=== PATIENT | male | born 1960 | race Caucasian/White ===

== ENCOUNTER 2023-07-16 17:30 | Inpatient (IN) | payer OTHER ==
[~2023-07-16] VITALS: Ht 188 cm; Wt 84.4 kg
[2023-07-16 23:39] VITALS: BP 115/80
[2023-07-17] VITALS (18 sets, daily range): BP systolic 120–165; BP diastolic 77–107
[2023-07-17] MEDS ORDERED: XARELTO20 M1 PO (00:01)
[2023-07-17] MEDS ORDERED: Ventolin/Prove6.7 GM INH (00:02)
[2023-07-17] MEDS ORDERED: BUDESONIDE-FO10.2 G2 INH (00:03)
[2023-07-17] MEDS ORDERED: METHI10 PO (00:05)
[2023-07-17] MEDS ORDERED: LISI20 PO (00:07)
[2023-07-17 01:14] LABS: BASOPHILS ABSOLUTE AUTO 0.02 K/mm3 (0.00-0.23); BASOPHILS PERCENT AUTO 0 % (0-2); EOSINOPHILS PERCENT AUTO 7 % (0-6); Hematocrit 39.1 % (37.0-53.0); IMMATURE GRAN ABSOLUTE AUTO 0.02 K/mm3 (0.00-0.10); IMMATURE GRAN PERCENT AUTO 0 % (0-1); LYMPHOCYTES ABSOLUTE AUTO 2.45 K/mm3 (0.84-5.20); LYMPHOCYTES PERCENT AUTO 25 % (21-46); MONOCYTES ABSOLUTE AUTO 1.39 K/mm3 (0.16-1.47); MONOCYTES PERCENT AUTO 14 % (4-13); Mean Corpuscular HGB 28.4 pg (26.0-34.0); Mean Corpuscular HGB Conc 33.2 g/dL (31.5-36.5); Mean Corpuscular Volume 86 fL (80-100); Mean Platelet Volume 9.4 fL (9.1-12.4); NEUTROPHILS ABSOLUTE AUTO 5.07 K/mm3 (1.96-9.15); NEUTROPHILS PERCENT AUTO 53 % (41-73); Platelet Count 256 K/mm3 (150-400); RDW Coefficient Variation 12.5 % (11.7-14.2); RDW Standard Deviation 38.6 fL (35.1-46.3); Red Blood Cell Count 4.57 M/mm3 (4.30-5.90); White Blood Cell Count 9.65 K/mm3 (4.00-11.30)
[2023-07-17 01:33] LABS: International Normalized Ratio 1.19; Prothrombin Time Results 12.4 Sec (9.7-11.5)
--- NOTE | 2023-07-17 02:04 | NUR ---
CHEST PAIN/ELEVATED HR CALL FROM [employer] AT 0105 THAT PT HR WAS ELEVATED RANGING BETWEEN AFIB 140'S-183. PT SYMPTOMATIC, DIAPHORETIC, AND REPORTED FEELING LIGHT HEADED. WOODWORKER HELPER WAS AT BEDSIDE WITH THIS PRIMARY RN. PT GIVEN FIRST NITRO DOSE AT 0113 WITH NO IMPROVEMENT IN CHEST PAIN. DR. VILLA CALLED AND NOTIFIED OF PT CHEST PAIN, AND INCREASED HR. RECEIVED ORDER FOR EKG, AND IV LOPRESSOR. 0120-IV LOPRESSOR GIVEN, HR RESPONDED AND CAME DOWN TO THE 120'S. AN EKG WAS OBTAINED BEFORE LOPRESSOR DOSE SHOWED AFIB W RVR. PLAVIX GIVEN AND HEPARIN GTT STARTED PER ORDERS AND DIRECTION OF PHARMACY. 0125-PT RECEIVED A TOTAL OF THREE DOSES OF NITRO, AND PT REPORTS THAT PAIN WENT FROM AN 01/31, 12/01. 0200-CHEST PAIN IS COMPLETELY RESOLVED. VITALS ARE BEING MONITORED CLOSELY. BLOOD PRESSURE STABLE, PT NOW REPORTS HE IS FEELING BETTER. 0150 DR. SHELL CALLED AND GIVEN UPDATE. NOTIFIED HIM OF EKG RESULTS, AND THAT PT HR RESPONDED POSITIVELY TO NITRO, AND IV LOPRESSOR. NOTIFIED HIM THAT CHEST PAIN RESOLVED AND THAT HR WAS IN THE 120'S. HE ORDERED MORPHINE FOR PAIN PRN, AND CARDIZEM 10 MG IV BOLUS TO BE ADMINISTER WITHIN AN HOUR OF MY PHONE CALL WITH HIM AT 0150 IF HR WAS MORE THAN 110. 0200 PT APPEARS TO BE RESTING COMFORTABLY AT THIS TIME AND CONTINUES TO DENY CHEST PAIN. PT IS ON 2L O2.
[2023-07-17 02:08] LABS: Albumin, Blood 3.3 g/dL (3.4-5.0); Albumin/Globulin Ratio 0.8 (0.8-1.8); Bilirubin, Total 0.6 mg/dL (0.1-1.0); Bun/Creatinine Ratio 24.7 (12.0-20.0); Calcium, Blood 8.6 mg/dL (8.5-10.1); Creatinine, Blood 0.89 mg/dL (0.60-1.20); Globulin, Blood 4.2 g/dL (2.2-4.0); Potassium, Blood 4.5 mmol/L (3.5-5.5); Total Protein, Blood 7.5 g/dL (6.4-8.2)
[2023-07-17 03:21] LABS: Magnesium, Blood 1.8 mg/dL (1.6-2.4)
--- NOTE | 2023-07-17 05:02 | NUR ---
SHIFT SUMMARY PT DIRECT ADMIT THIS SHIFT FOR CHEST PAIN, TROPONIN'S ELEVATED. UPON ADMISSION TO THE SURGICAL UNIT PT DENIED CHEST PAIN. EMS REPORTS THAT PT DID HAVE SOME CHEST PAIN EN ROUTE TO OUR FACILITY, AND RECEIVED MORPHINE THAT WAS EFFECTIVE FOR PAIN. HOWEVER, A SHORT TIME AFTER COMPLETING ADMISSION A LITTLE AFTER 0100 PT BEGAN COMPLAINING OF CHEST PAIN AGAIN. HE REPORTED 8/10 PAIN. PT ALSO REPORTED FEELING LIGHT HEADED. PT WAS DIAPHORETIC AND CLINCING HIS CHEST. PT WAS FOUND TO BE IN IN AFIB RVR ON TELE. DR. SHELL MADE AWARE AND PT MEDICATED FOR CHEST PAIN AND ELEV HR PER ORDERS WITH EFFECT. PLAN IS FOR CARDIOLOGY CONSULT AND ANGIO. PT HAS BEEN NPO. SINCE BEING MEDICATED FOR ELEVATED HR PT HAS BEEN ABLE TO MAINTAIN HR IN THE LOW 100'S-110'S. PT HAS NOT HAD ANYMORE COMPLAINTS OF CHEST PAIN SINCE HIS LAST DOSE OF NITRO AT 0125. PT A/OX4, NEURO INTACT, SPEECH CLEAR. HEPARIN GTT INFUSING. TELE IN PLACE. BED IN LOWEST POSITION, CALL LIGHT WITHIN REACH.
--- NOTE | 2023-07-17 06:37 | NUR ---
CARDIOLOGY/INCREASED HR/TRANSFER JELLY MAKER ROUNDED ON PT THIS AM. PT HR IS BACK UP SUSTAINING BETWEEN 140'S-160'S PER BUCKLE STAPLER. PT IS NOT REPORTING CHEST PAIN AT THIS TIME. JELLY MAKER REVIEWED EKG, AND IS AWARE OF HR ON TELE. HE ORDERED TRANSFER TO PCU FOR CARDIROXANNAM DRIP.
--- NOTE | 2023-07-17 06:51 | NUR ---
TRANSFER REPORT GIVEN TO DAYSINFT INFECTION CONTROL RN TO ASSUME CARE OF PT AT THIS TIME.
--- NOTE | 2023-07-17 07:05 | NUR ---
TRANSFER DAYSHIFT CHRAGE RN TO INITIATE TRANSFER TO PCU. PT RESTING IN BED AT THIS TIME. CARDIOLOGY IN ROOM WITH PT. REPORT GIVEN TO RECEIVING RN.
--- NOTE | 2023-07-17 12:09 | NUR ---
AM NOTE: PATIENT TRANSFER FROM Replaced by [facility] TO PCU 17 THIS AM. THIS RN AT BEDSIDE FOR TRANSFER. PATIENT ALERT AND ORIENTED X4. AT TIMES SPEECH HARD TO UNDERSTAND. MOVING ALL EXTREMITIES WNL. BILATERAL MANAGER BABY STRENGTH. DENIES NUMBNESS/TINGLING. DENIES HEADACHE/VISION CHANGES. UP WITH SBA TO ASSIST WITH URINAL. TELE SHOWING AFIB RVR. HR 90-110'S AT REST, UP TO 150-170'S WITH ACTIVITY SUCH EATING AND STANDING AT BEDSIDE. WITH ELEVATED HR PATIENT FEELS CHEST PRESSURE AND BECOMES LIGHTHEADED. DR. RIVERS BY THIS AM AND PATIENT TAKEN FOR ANGIO. POST PROCEDURE VITALS IN PROGRESS WITH RIGHT RADIAL PRECAUTIONS IN PLACE. THIS RN IN PROCESS OF DEFLATING TR BAND AT THIS TIME. CARDIZEM GTT INFUSING PER DR. RIVERS ORDERS. BP STABLE. HOME LISINPROL CONTINUED. HOME XARELTO CONTINUED, HEPARIN GTT DISCONTINUED AND PHARMACY UPDATED. PO ASPIRIN DISCONTINUED AND ECHO ORDERS IN PLACE. IV CARDIZEM INFUSING PER EMAR AT 5MG/HR AT THIS TIME. PPP. NO EDEMA NOTED. ON ROOM AIR LUNGS SOUNDING CLEAR. OCCASIONAL COARSE COUGH. PATIENT EVERYDAY SMOKER. CIGARETTES AND HEALTH CARE LIAISON LOCKED IN MED BOX. DENIES SOB/COUGH. EVEN AND UNLABORED RESPIRATIONS. BOWEL TONES PRESENT. PATIENT EATING AND VOIDING WNL. DENIES ABDOMINAL PAIN/NAUSEA. NO SWALLOWING ISSUES NOTED. SBA TO USE URINAL. SKIN OVERALL PALE WITH SCABING NOTED TO LEFT MEDIAL AND LATERAL ANKLE, SEE PICTURES IN CHART. ATTEMPTED TO CALL WOLF AND BROTHER JASBIR THIS AM TO UPDATE. UNABLE TO GET AHOLD OF FAMILY AND UNABLE TO LEAVE VOICEMAIL WITH CALL BACK NUMBER DUE TO MAILBOX BEING FULL. [facility] IN [place] CALLED TO OBTAIN MED LIST. HOME MED REC UPDATED AND DR. WEISS AWARE OF HOME MEDICATIONS. CALL LIGHT IN REACH. PATIENT EATING LUNCH AT THIS TIME AND DENIES NEEDS.
--- NOTE | 2023-07-17 12:44 | NUR ---
SPOKE WITH WOLF AND PROVIDED UPDATE.
--- NOTE | 2023-07-17 16:54 | NUR ---
ECHO CALLED, PLAN TO COMPLETE ECHO IN AM. DR. WEISS UPDATE ON PATIENT HR TREND AND BP. ORDERS FOR METOPROLOL SUCCINATE 50 MG PO DAILY STARTING NOW AND TO CONTINUE CARDIZEM GTT. HR 80-110'S AT REST AND UP TO 140-150'S WITH ANY ACTIVITY. ORDERS IN PLACE. MILITARY LAWYER UPDATED.
--- NOTE | 2023-07-17 17:48 | NUR ---
SHIFT SUMMARY: NO ACUTE CHANGES. PATIENT REMAINS ALERT AND ORIENTED X4. SLEEPING MOST OF SHIFT, WAKING EASILY FOR CARES. SBA TO HELP MANAGE CORDS. REMAINS ON CARDIZEM GTT AT THIS TIME. SEE PREVIOUS NOTE FOR PO METOPROLOL ORDERS. PATIENT HR REMAINS 80-110'S AT REST, UP TO 150'S WITH ACTVITY. BP STABLE. DENIES ANY CHEST PAIN/PRESSURE. RIGHT RADIAL SITE RECOVERED AND WNL. ARM BOARD IN PLACE. EATING AND VOIDING WNL. BOWEL MOVEMENT X1 THIS SHIFT. PLAN FOR ECHO TOMORROW AM. REMAINS ON ROOM AIR. DENIES NEEDS AT THIS TIME.
--- NOTE | 2023-07-17 21:55 | NUR ---
PT ALERT AND ORIENTED X 4, COOPERATIVE WITH CARE AND ABLE TO MAKE NEEDS KNOWN. PERRLA. NO OXYGEN SUPPLEMENTATION NEEDED, MAINTAINING 02 SATURATION ABOVE 92% ON RA, HE DENIES SOB. AT REST HR AFIB 90'S-110'S, TACHY & CP W/EXERTION 140'S-180'S, PT RECOVERS QUICKLY BACK TO NO CP AND HR 90'S-110'S, MD'S AWARE. PT ON CARDIZEM GTT PER EMAR. PT IS CONTINENT. HE HAS SCAB TO L ANKLE UPON ADMISSION, PICTURE IN CHART. BLANCHABLE REDNESS TO COCCYX AREA. BED BATH AND FULL LINEN CHANGE PERFORMED TONIGHT. R RADIAL SITE POST ANGIO HAS NO REDNESS/SWELLING/PAIN AND 0 HEMATOMA. ARM BOARD IS IN PLACE. PT IS CURRENLTY TALKING TO HIS ON THE PHONE AND RESTING IN BED. CALL LIGHT IS WITHIN REACH.
[2023-07-18] VITALS (10 sets, daily range): BP systolic 110–142; BP diastolic 65–99
--- NOTE | 2023-07-18 06:33 | NUR ---
SHIFT SUMMARY NO ACUTE CHANGES, SEE PREVIOUS NOTE.
--- NOTE | 2023-07-18 07:45 | NUR ---
AM NOTE: PATIENT ALERT AND ORIENTED X4. SLEEPY THIS AM BUT WAKES EASILY TO CARES. SBA TO HELP MANAGE CORDS. MOVING ALL EXTREMITIES WNL. PERRLA. TELE SHOWING AFIB WITH HR 80-110'S AT REST AND UP TO 160'S WITH ACTIVITY. BP STABLE. DENIES CHEST PAIN/PRESSURE/PALPITATIONS AT REST. WITH ELEVATED HEART RATE PATIENT REPORTS FEELING SLIGHT PRESSURE AND SOME NOTICABLE SHORTNESS OF BREATH. PATIENT HR RETURNS TO 110'S ONCE RETURNING TO BED AFTER ACTIVITY. PPP. RIGHT RADIAL SITE WNL, ARM BOARD REMAINS IN PLACE. SOFT AND NONTENDER, NO SIGNS OF BLEEDING. THIS RN REINFORCED RADIAL SITE PRECAUTION EDUCATION. ON ROOM AIR SATING ABOVE 95%. LUNGS SOUNDING CLEAR AND DIM IN BASES. DENIES SOB/COUGH. EVEN AND UNLABORED RESPIRATIONS. BOWEL TONES PRESENT. EATING AND VOIDING WNL. DENIES ABDOMINAL PAIN/NAUSEA. USING URINAL AND BSC DUE TO ELEVATED HR WITH ACTIVITY. SKIN OVERALL PALE WITH SCABS ON LEFT ANKLE AND RIGHT BIG TOE. PATIENT ABLE TO TURN AND MOVE SELF IN BED.
--- NOTE | 2023-07-18 10:00 | NUR ---
UPDATE PROVIDED TO DR. WEISS - THIS RN REPORTED HR HR 80-110'S AT REST AND UP TO 160'S WITH ACTIVITY. CURRENT BP, ECHO COMPLETED WITH RESULTS PENDING AND CARDIZEM GTT INFUSING AT 5MG/HR. ORDERS TO DC CARDIZEM GTT AND INCREASE PO METOPROLOL SUCCINATE TO 100 MG PO DAILY. ORDERS PLACED FOR ADDITIONAL 50MG PO METOPROLOL SUCCINATE TO EQUAL 100MG PO METOPROLOL SUCCINATE FOR THIS AM, THEN 100MG PO METOPROLOL SUCCINATE DAILY, WELL CARDIZEM DISCONTINUED. PATIENT UPDATED WITH PLAN OF CARE. CARDIZEM GTT DISCONTINUED AND ADDITIONAL PO 50MG METOPROLOL SUCCINATE GIVEN TO EQUAL THE 100MG.
--- NOTE | 2023-07-18 13:11 | NUR ---
ADDTIONAL UPDATE PROVIDED TO DR. WEISS AT THIS TIME - PATIENT UP TO BEDSIDE TO USE URINAL, UPON STANDING PATIENT HR UP TO 160'S, SLIGHT CHEST PRESSURE AND SOB. CURRENT BP 122/86 (97). HR TRENDING DOWN 110-120'S UPON SITTING DOWN IN BED. ORDERS FOR TSH LAB, ORDERS IN PLACE.
--- NOTE | 2023-07-18 15:14 | NUR ---
TSH LAB RESULT REPORTED TO DR. WEISS AND DR. DURANT.
--- NOTE | 2023-07-18 15:18 | NUR ---
Upon receiving a referral for spiritual care, I visited the patient. He is lying in bed and alert. He talks about his medical issues, and about how anxious he is to go to his home in [place]. He is tearful as he talks about missing his , kids and grandkids. He shares about his spiritual journey and his desire to rekindle that connection to God that he has been away from for the last couple yrs. I normalize his experience, provide therapeutic listening, pastoral certified alcohol drug counselor and prayer. Patient responded well and showed signs of an increase in peace and an elevated mood. I will continue to remain available to patient and family.
--- NOTE | 2023-07-18 18:02 | NUR ---
PATIENT UP TO BSC TO HAVE BOWEL MOVEMENT. HR UP TO 170'S. PATIENT REPORTS SYMPTOMS: CHEST PRESSURE, LIGHTHEADEDNESS, SHORTNESS OF BREATH AND IS SLIGHTLY DIAPHORETIC. PATIENT BACK TO BED AND SYMPTOMS RESOLVED OVER 3-5 MIN PERIOD. HR TRENDING DOWN 110-120'S. BP 126/90 (102). SATING ABOVE 95% ON ROOM AIR. DR. WEISS UPDATED, ORDERS TO PLACE PATIENT BACK ON CARDIZEM GTT AT THIS TIME. ORDERS IN PLACE. PATIENT UPDATED ON PLAN OF CARE.
--- NOTE | 2023-07-18 18:11 | NUR ---
ORDERS FROM DR. WEISS, POSSIBLE FATIMAH/CARDIOVERSION 07/19. PATIENT WILL BE NPO AT MIDNIGHT. ORDERS IN PLACE, PATIENT UPDATED.
--- NOTE | 2023-07-18 19:30 | NUR ---
ASSESSMENT/ASSUMED CARE PT SITTING UP IN BED WATCHING TV. HEART RATE 120'S ON CARDIZEM GTT AT 5 MG/HR. DENIES PAIN OR DISCOMFORT. RESP EVEN AND NONLABORED ON ROOMAIR. RESP EVEN AND NONLABORED. NO EDEMA. BT+ ABD SOFT AND NONTENDER. DENIES N/V. EXPLAINED FATIMAH AND CARDIO VERSION TO PT. ANSWERED QUESTIONS. INFORMED PT NPO AFTER MIDNIGHT. PT RESTING QUIELTY.
[2023-07-19] VITALS (28 sets, daily range): BP systolic 99–153; BP diastolic 58–90
--- NOTE | 2023-07-19 00:01 | NUR ---
PT SITTING UP IN BED WATCHING TV. HEART RATE 90-110 WITH CARDIZEM AT 5MG/HR. REMINDED PT THAT HE IS NPO NOW.
--- NOTE | 2023-07-19 05:03 | NUR ---
LEFT AC IV INFILTRATED. DC'D INTACT. CARDIZEM CHANGED TO RIGHT AC. CALL TO PHARMACY FOR INFILTRATION. LEFT ARM ELEVATED WITH DRSG APPLIED
--- NOTE | 2023-07-19 05:18 | NUR ---
SHIFT SUMMARY PT RESTING QUIELTY. CARDIZEM ON AT 5 MG/HR THROUGHOUT THE NIGHT. HEART RATE 80-100'S WHILE SLEEPING. UP TO 100-120'S WHILE AWAKE SITTING UP IN BED. HEART RATE UP TO 140'S WHEN UP TO THE BATHROOM. BP STABLE. DENIES PAIN OR DISCOMFORT. PT TURNING AND MOVING SELF IN BED. POSSIBLE FATIMAH AND CARDIVERSION THIS MORNING. PT HAS BEEN NPO SINCE MIDNIGHT. REPORT TO ON COMING NURSE
--- NOTE | 2023-07-19 15:57 | NUR ---
CARDIOVERSION SUMMARY FROM THIS MORNING 07/19: SVP OPERATIONS: DR WEISS MAINTENANCE INSTRUCTOR: TABATHA PERDOMO (MEDICATIONS/ZOLL) PRIMARY RN: KEVIN MANN (RECORDER) EXTRA HANDS/RUNNER: PRABHA RN RT: RAPHAEL RT IN PROCEDURE/ VALERIANO RT POST PROCEDURE SEE REVIEW FOR PROCEDURE VITAL SIGNS 07 CONSENT SIGNED; PT PLACED ON 2L NC BY RAPHAEL RT; NORMAL SALINE STARTED a 50ML/HR, ZOLL PADS PLACED, BEATS SYNCORNIZED ON THE ZOLL. STARTING VS 121/90 (98), HR AFIB 100'S, RESP 24 0731 TIME OUT PREFORMED BY TABATHA PERDOMO 0732 50 MCG FENTANYL AND 2 MG VERSED IV GIVEN. 07 25 MCG FENTANYL AND 1 MG VERSED GIVEN 07 200 JOUL,CHARGE; CLEARED PT; SHOCK DELIVERED PT WENT FROM AFIB TO VTACH. 07 DR. WEISS ORDERED A SECOND 200 JOUL CHARGE; CLEARED THE PT; SECOND SHOCK DELIVERED. PT WENT VTACH TO SR 60'S-70'S W/ PAC'S. PT VS REMAINED STABLE, HE REMAINED ORIENTED, TOLERATED PO INTAKE ABOUT AN HOUR POST PROCEDURE. HE WAS TAKEN OFF OF THE NC ABOUT 829, SP02 >95% ON RA, PT DENIES SOB. HE DOES NOT REMEMBER THE PROCEDURE AND IS NOT HAVING PAIN FROM IT. THE PT HAS BEEN WALKING AROUND THIS MORNING AND AFTERNOON. HE DENIES ANY ANGINA OR CHEST PRESSURE. DR. WEISS DID DECREASE HIS METOPROLOL TO 50MG THIS MORNING POST PROCEDURE. THE PT AND I HAVE TRIED GETTING AHOLD OF HIS MULTIPLE TIMES TO UPDATE HER ON THE PROCEDURE AND WE HAVE NOT BEEN ABLE TO GET AHOLD OF HER. THE PT REMAINS ON CONT. CARDIAC MONITORING. SEE NOTES FOR ANY UPDATES.
--- NOTE | 2023-07-19 17:55 | NUR ---
END OF SHIFT SUMMARY PT IS A&OX4, CALLS APPROPRAITELY AND MAKES HIS NEEDS KNOWN. HE HAS BEEN SR 70'S-90'S ON TELE W/ PAC'S. A FEW TIMES HE TOUCHED UP TO THE 140'S BUT DID NOT SUSTAIN. THE PT HAS DENIED ANY ANGINA OR CHEST PRESSURE. HE HAD A CARDIOVERSION THIS MORNING WHERE HE HAD A BRIEF RUN OF VTACH REQUIRING TWO SHOCKS. SEE PREVIOUS NOTE FOR PROCEDURE DETAILS. THERE HAVE BEEN NO EVENTS TIS SHIFT POST PROCEDURE. THE PT HAS BEEN ON RA AND DENIES ANY SOB. FIRE IGNITION RISK HAS BEEN ASSESSED.
[2023-07-20 00:15] VITALS: BP 128/76
[2023-07-20 03:45] VITALS: BP 129/78
--- NOTE | 2023-07-20 05:31 | NUR ---
SHIFT SUMMARY PT REMAINS A&O X4, PLEASANT AND COOPERATIVE WITH CARE. VSS T/O; SBP 120'S, HRR AFIB W/FREQUENT PAC'S WITH RATE IN THE 70 - 80'S. PT REMAINS FREE OF CP/PRESSURE, DIZZINESS, LIGHTHEADNESS, SOB, N/V. PT AFEBRILE DURING SHIFT. NO ACUTE CHANGES OR EVENTS OVERNIGHT. PT REMAINS ON RA, SPO2 >96%. PT TOLERATING PO INTAKE WELL. PT AMBULATING TO RESTROOM SBA FOR CORD MANAGEMENT, NO CONCERNS GI/. PT EXPRESSES HIS DESIRE AND READINESS TO "GO HOME". OTHERWISE PT REPORTS HE IS "FEELING MUCH BETTER". PT ABLE TO USE CALL LIGHT APPROPRIATELY AND MAKE NEEDS KNOWN. CALL LIGHT IN REACH AND PT CURRENTLY RESTING. WILL UPDATE ONCOMING RN
[2023-07-20 07:12] VITALS: BP 142/85
[2023-07-20] MEDS ORDERED: METO50ER PO (10:39)
[2023-07-20 11:07] VITALS: BP 141/84
--- NOTE | 2023-07-20 13:18 | NUR ---
DISCHARGE SUMMARY THE PT WAS DISCHARGED [facility] 1250 THIS AFTERNOON. VS STABLE. HE HAS NO ACUTE EVENTS. HIS MEDICATIONS WERE FAXED TO [facility] IN [place] AND HE HAD HIS DAUGHTER PICK THEM UP. WE ARRANGED TRANSPORT WITH [facility] TO TRANSPORT HIM [facility] TO [place]. ALL BELONGINGS WERE SENT WITH THE PT AND HIS CIGGERATES AND WARHEAD MAINTENANCE SPECIALIST WERE RETURNED AT DISCHARGE. DISCHARGE INSTUCTIONS WERE GONE OVER WITH THE PT AND ALL QUESTIONS WERE ANSWERED. IV DISCHARGED BY THE COMMUNITY ENGAGEMENT REPRESENTATIVE.
== END 2023-07-20 12:57 | disposition home or self-care (01) | DRG 282 ==
LOC: SURS 17:30 → PCU 07-17 07:05
PROVIDERS: Internal Medicine; ADMIT Internal Medicine
PROC: B2111ZZ Fluoroscopy of Multiple Coronary Arteries using Low Osmolar Contrast (ICD-10-PCS; principal; 2023-07-17)
PROC: 5A2204Z Restoration of Cardiac Rhythm, Single (ICD-10-PCS; 2023-07-19)
DX: I48.0 Paroxysmal atrial fibrillation (principal); I21.A1 Myocardial infarction type 2; J44.9 Chronic obstructive pulmonary disease, unspecified; I10 Essential (primary) hypertension; E05.90 Thyrotoxicosis, unspecified without thyrotoxic crisis or storm; R53.1 Weakness; I47.20 Ventricular tachycardia, unspecified; Z79.01 Long term (current) use of anticoagulants; Z28.21 Immunization not carried out because of patient refusal
CPT/HCPCS: 36415; 76937; 80053; 83735; 84436; 84443; 84484; 85025; 85610; 85730; 93306; 93454; 94640; 94664; 94760; 94762; 96365; 96375; 99152; 99153; A9270; C1769; C1894; G0378; J1644; J2250; J3010; J3475; J7030; J7040; J7050; Q9967